=== PATIENT | female | born 1985 | race African-American/Black ===

== ENCOUNTER 2023-03-15 10:00 | Outpatient (CLI) | payer OTHER ==
--- NOTE | 2023-03-15 10:54 | Sleep Patient Instructions ---
Sleep Center Visit Summary - Patient Visit Information Reason for Visit: Initial consult for evaluation of sleep disordered breathing and other sleep issues. - Patient Instructions Instructions Attached: Sleep Study Home Monitor, Sleep Clinic Visit, Sleep Study Additional Instructions: You will be completing a sleep study, either an in-lab polysomnography (PSG) or home sleep study (HST). You will follow-up in the sleep care office after the sleep study is completed to hear the results and talk about therapy, if needed. You will be called by our office staff to schedule this appointment, but you may contact us with any questions. - Clinic Information Contact[facility] [address] [place] [address] [email or web address] T: [phone]
--- NOTE | 2023-03-15 11:00 | SLEEP CARE CONSULTATION ---
Information from patient questionnaire entered by France Salas. I have reviewed and concur with the information entered by France Salas. This document represents the service I personally performed and the decisions made by me, Joelle Darden ARNP. History of Present Illness Service Date and Time: 03/15/2023 1000 Reason for Visit: New patient, Previously diagnosed sleep apnea Chief Complaint: reports: Unrefreshed sleep, Snoring, Excessive daytime sleepiness, Observed pauses in breathing, Fatigue, Frequent awakenings at night, Other (ALL THE ABOVE AND UPDATED RX) Date of Onset: 8YRS Usual bedtime: IT DEPENDS I TRY TO GOTO BED BEFORE MIDNIGHT Time it takes to fall asleep: A WHILE Snores at night: Yes Observed to quit breathing while asleep: Yes Sleeps alone due to snoring: No Number of times waking at night: 2-3 Reasons for waking at night: reports: Bathroom, Other (ADJUSTING HOW I LAY IN BED; dry mouth/cough). denies: Choking, Gasping for air Toss, Turn, or Twitch while sleeping: Yes Recalls having dreams: Yes Usually gets out of bed at: 0715 on weekdays; 09-10 AM on weekends Feels refreshed in the morning: No Morning headache: Yes (2 times a month) Sleepy or fatigued during the day: No Ever fallen asleep while driving: No Takes day naps: Yes (1-2 times a week) Dreams during day naps: Yes Prior sleep studies: Yes Additional HPI information: I had the pleasure of seeing JOSE WHITAKER today regarding the possibility of her having a sleep disorder. Her current complaints are excessive daytime sleepiness, fatigue, frequent night awakenings, observed pauses in breathing, snoring and unrefreshed sleep. She was previously diagnoses with sleep apnea and placed on a CPAP but has had trouble with getting supplies and has been unable to use her CPAP consistently for the last 3 years. She does not have a copy of her last sleep study, she thinks it was done in [id number] in [place]. She saw her PCP who tried to update her supply prescription but was unable to get the DME to accept it and send her supplies. She did purchase a mask on line but has not used the machine yet. She would like to be able to consistently get supplies and use her CPAP. - Parasomnia Symptoms Ever been unable to move upon waking from sleep: No Walks in sleep: No Talks in sleep: Yes Ever acted out dreams in sleep: No Ever felt weak in the knees when startled or emotional: No Bothered by creepy, crawly, restless sensations in legs: Yes (mostly at night but not often) Problems with memory or concentration: Yes (both) CPAP Compliance Data - Data Reviewed with Patient Average duration of nightly device use: 4 minutes Compliance rate %: 0 ( days used) Current pressure setting (cmH2O): 7 Average residual AHI: 0 Compliance data discussion: She has a ResMed Airsense 10 that was set up in 05/2019. She has used a nasal p illows mask in the past. Subjective Missed days of use due to: reports: other (no supplies to be able to use CPAP) Current pressure setting perceived as: comfortable On therapy, patient: reports: sleeping better, awakening more refreshed, being more awake and alert during the day, more rested overall. denies: drowsiness while driving Initial Franklin Sleepiness Scale score: 18 (03/15/23) Past Medical History Past Medical History: reports: Hypertension, Claustrophobia, Anxiety, Asthma, Depression, Attention deficit, Other (ENDOMETRIAL CANCER, PRE DIABETES) Social History The patient's occupation is a [employer]. Patient is and lives in [place]. Have you smoked in the past 12 months: No Alcohol use: Yes Alcohol amount and frequency: OCCASSIONALLY 1 A WEEK OR 1 EVERY 2 WEEK Caffeine use: Yes Caffeine amount and frequency: occasional tea, unsure if caffeine in it Family History Family history of sleep disordered breathing: Yes Family Hx Sleep Apnea: Mother: Snoring, Sleep apnea - Untreated, Father: Snoring, Sleep apnea - Untreated, Sibling: Snoring, Sleep apnea - Untreated Allergies and Home Medications Known drug allergies: No Drug allergies reviewed: Yes Home medication list reviewed: Yes Allergy and home medication list: Home Medications Medication Instructions Recorded Confirmed Last Taken Type Fexofenadine [Brittany] See Rx Instructions .ROUTE .COMPLEX 03/15/23 03/15/23 Unknown History Fluticasone/Umeclidin/Vilanter See Rx Instructions .ROUTE .COMPLEX 03/15/23 03/15/23 Unknown History [Treledonovan Ellipta 100-62.5-25] Megestrol Acetate See Rx Instructions .ROUTE .COMPLEX 03/15/23 03/15/23 Unknown History Pantoprazole [Protonix] See Rx Instructions .ROUTE .COMPLEX 03/15/23 03/15/23 Unknown History Telmisartan/Hydrochlorothiazid See Rx Instructions .ROUTE .COMPLEX 03/15/23 03/15/23 Unknown History [Micardis Hct 40-12.5 mg Tablet] amLODIPine [Norvasc] See Rx Instructions .ROUTE .COMPLEX 03/15/23 03/15/23 Unknown History metFORMIN [Glucophage] See Rx Instructions .ROUTE .COMPLEX 03/15/23 03/15/23 Unknown History Review of Systems Weight gain over past 5 years: 25-30 Cardiovascular: reports: high blood pressure, palpitations, chest pain Respiratory: reports: shortness of breath Gastrointestinal: reports: heartburn Urinary: reports: frequency Neurological: denies: headaches Psychiatric: reports: Attention Deficit Hyperactivity, anxiety, depression, claustrophobia Ear/Nose/Throat: denies: tonsillectomy Endocrine: reports: sluggishness, increased urination Musculoskeletal: reports: joint pain, muscle pain or cramping Immunologic: reports: sneezing, rash, itching, allergies to food or environment Physical Exam Vital signs obtained and entered by: FRANCE Lockhart MA Blood Pressure: 138/86 (LEFT ARM) Cuff size: long Heart Rate: 105 O2 Saturation: 98 Height: 5 ft 2 in Weight: 224 lb 9.6 oz Body Mass Index: 41.1 BMI Classification: Morbidly Obese Neck circumference: 20 Mouth and throat: narrow oropharynx Soft palate: long Hard palate: normal Uvula: long Uvula visualization: 25% Mallampati Class III Tongue: enlarged in size with teeth guerrero on lateral edges Tonsils: 3+/kissing Neck: normal w/o lymphadenopathy or thyromegaly Heart: regular rate and rhythm Lungs: clear bilaterally Impression and Plan 1. Suspected Obstructive Sleep Apnea-Hypopnea Syndrome, as previously diagnosed and suggested by a history of loud and irregular snoring, observed cessation of breath while asleep, frequent awakening during the night, unrefreshed sleep, cognitive impairment, and excessive daytime sleepiness. Narrow oropharynx and obesity are common predisposing factors for obstructive sleep apnea-hypopnea syndrome. I recommend proceeding to polysomnography to confirm the diagnosis and to assess severity. If the patient has significant sleep disordered breathing, a manual CPAP titration study will also be performed to find the optimal treatment pressure. I informed the patient of what the sleep studies involve and after some discussion, obtained agreement to proceed. The pathophysiology of obstructive sleep apnea-hypopnea syndrome was discussed with the patient and health risks of cardiovascular and cerebrovascular disease if not treated. Risks of drowsy driving discussed in detail and patient advised to avoid long distance driving and to tobacco sample puller at the first sign of drowsiness. Patient agreed to plan. * Schedule polysomnography. * Avoid long distance driving or driving when feeling sleepy. * Avoid alcohol, sedative and muscle relaxant around bedtime. * Attempt to lose weight. * Review instructions provided by trained office staff on how to prepare for the sleep study. * Return for follow-up after sleep study completed. Counseling Topics: Weight loss health impact Plan: PSG evaluation Visit Type: In Office Time Spent with Patient (minutes): 34 Provider Statement: I spent 100% of the Face to Face Visit with the patient with greater than 50% spent counseling the patient and coordination of care.
[2023-03-15 11:02] VITALS: BP 138/86; O2SAT 98
== END 2023-03-15 10:01 | disposition home or self-care (01) ==
LOC: SC 10:00
PROVIDERS: ATTEND Nurse Practitioner Family
DX: R06.83 Snoring (principal); G47.8 Other sleep disorders; R06.81 Apnea, not elsewhere classified; G47.10 Hypersomnia, unspecified; R53.83 Other fatigue; I10 Essential (primary) hypertension; F32.A Depression, unspecified; E66.01 Morbid (severe) obesity due to excess calories; Z68.41 Body mass index [BMI] 40.0-44.9, adult
CPT/HCPCS: 99203; 99212

== ENCOUNTER 2023-04-06 19:31 | Outpatient (CLI) | payer OTHER | END 2023-04-06 19:32 | disposition home or self-care (01) | LOC: SC 19:31 | PROVIDERS: ATTEND Nurse Practitioner Family | DX: G47.33 Obstructive sleep apnea (adult) (pediatric) (principal); I48.91 Unspecified atrial fibrillation; E66.01 Morbid (severe) obesity due to excess calories; Z68.41 Body mass index [BMI] 40.0-44.9, adult | CPT/HCPCS: 95810 ==

== ENCOUNTER 2023-04-12 15:50 | Outpatient (CLI) | payer OTHER ==
--- NOTE | 2023-04-12 15:27 | SLEEP CARE CONSULTATION ---
Information from patient questionnaire entered by France Salas. I have reviewed and concur with the information entered by France Salas. This document represents the service I personally performed and the decisions made by , Joelle Darden ARNP. History of Present Illness Service Date and Time: 04/12/2023 1520 Initial Lenora Sleepiness Scale score: 18 (03/15/23) Current Lenora Sleepiness Scale score: 16 (04/12/23) Additional HPI information: JOSE WHITAKER returns via video telehealth visit for follow up and results of the recently performed polysomnography. Her sleep study showed very severe obstructive sleep apnea with an average AHI of 81.9 and mars oxygen saturation of 59%. Her cardiac monitoring showed atrial fibrillation. I explained the pathophysiology behind obstructive sleep apnea. We then spent quite a bit of time discussing different treatment options. For mild obstructive sleep apnea, surgery and oral appliance are alternatives to nasal CPAP therapy but in moderate or severe cases, nasal CPAP is the most effective and reliable treatment. I reviewed the impact of weight changes on sleep apnea and strongly recommended losing weight. The patient will resume nasal CPAP set at 7 cmH20 at her previous setting. A manual titration study will be ordered if unable to find optimal pressure with office adjustments. Patient counseled not drink alcohol less than 4 hours before bedtime as it can increase snoring and apnea. Patient was cautioned about risks of drowsy driving until sleepiness symptoms resolve. Patient denies drowsy driving. Sleep Study - Results Type of Sleep Study: Polysomnography (COMPLETED 04/06/23) Prior sleep studies: Yes Polysomnography/Home Sleep Study results: IMPRESSION: The quality of the study is good. The patient had slightly reduced sleep efficiency due to two prolonged awakenings during the night. The sleep architecture was abnormal for sleep fragmentation and lack of slow wave sleep (N3). Respiratory monitoring showed very severe obstructive sleep apnea-hypopnea (AHI = 81.9) associated with frequent arousals, oxyhemoglobin desaturation and severe hypoxia (mars oxygen saturation of 59%). Baseline oxygen saturation was normal. The respiratory events occurred independently of sleep stage and body position (supine AHI = 88.1; non-supine = 70.05). Snore was very loud in i ntensity. There was no significant periodic leg movement of sleep. Cardiac rhythm was atrial fibrillation. No abnormal behavior (parasomnia) observed during the night. Allergies and Home Medications Known drug allergies: No Drug allergies reviewed: Yes Home medication list reviewed: Yes (Buproprion; Atorvastatin) Allergy and home medication list: Allergies No Known Drug Allergies Allergy (Verified 04/11/23 09:52) Review of Systems Review of systems same as previous: Yes (NO CHANGE) Physical Exam Vital signs obtained and entered by: FRANCE Lockhart MA Blood Pressure: 117/62 (PER PT) Height: 5 ft 2 in (PER PT) Weight: 218 lb (PER PT) Body Mass Index: 39.9 BMI Classification: Obese Impression and Plan 1. Obstructive Sleep Apnea-Hypopnea Syndrome, very severe, with lowest oxygen saturation of 59%. Obviously this is the cause of the patients symptoms of unrefreshed sleep, and excessive daytime sleepiness. Positive pressure therapy could benefit hypertension, anxiety, depression, attention deficit and pre- diabetes.. As mentioned above, the patient will resume on nasal autoCPAP therapy with pressure set at 7 cmH2O. A manual titration study will be completed if unable to find optimal treatment pressure with office adjustments. Compliance guidelines also reviewed. A copy of compliance guidelines will be given for reference at check out. 2. Atrial fibrillation. Cardiac monitoring during sleep study showed atrial fibrillation for her heart rhythm. I advised her to follow-up with her primary care or junior bookkeeper for further evaluation and treatment as needed. 3. Hypoxemia, severe, with a mars oxygen saturation of 59% and 82.2 minutes spent under 90%. Her baseline oxygen saturation was normal with an average oxygen saturation of 92%. 4. Obesity, unspecified. Currently patients BMI is 39.9. Obesity increases the risk of apnea, CPAP pressure requirements and overall health risks especially cardiovascular and diabetes. Thus patient is advised to lose weight. * Restart CPAP therapy, pressure at 7 cmH2O. * Attempt to lose weight. * Avoid alcohol consumption near bedtime. * The patient is again cautioned about driving until sleepiness completely resolves. * Return one month after restarting CPAP therapy. I will assess response to therapy and compliance at that time. Counseling Topics: Weight loss health impact Prescriptions: Device supplies Follow up with Sleep Care in: 1-2 months Visit Type: Telehealth Video Video Type: Doximity Patient Location: Home Location of Provider: Office Patient agrees and consents to this telehealth visit type: Yes Patient agrees to have their insurance billed: Yes Time Spent with Patient (minutes): 22 Provider Statement: I spent 100% of the Telehealth Video Call with the patient with greater than 50% spent counseling the patient and coordination of care.
[2023-04-12 15:33] VITALS: BP 117/62
== END 2023-04-12 15:51 | disposition home or self-care (01) ==
LOC: SC 15:50
PROVIDERS: ATTEND Nurse Practitioner Family
DX: G47.33 Obstructive sleep apnea (adult) (pediatric) (principal); E66.9 Obesity, unspecified; I48.91 Unspecified atrial fibrillation; Z68.39 Body mass index [BMI] 39.0-39.9, adult

== ENCOUNTER 2023-05-15 10:00 | Outpatient (CLI) | payer OTHER ==
--- NOTE | 2023-05-15 10:46 | Sleep Patient Instructions ---
Sleep Center Visit Summary - Patient Visit Information Reason for Visit: 1 month follow-up - Patient Instructions Additional Instructions: You were here for follow up of CPAP therapy. You will be continued on CPAP therapy with pressure at 8-12 cmH2O. Please let us know if the pressure change is uncomfortable and we can make further adjustments of the pressure. You should follow up with sleep care in 1-2 months. You may contact us sooner for any questions or concerns. - Clinic Information Contact: [facility] [address] [place] [id number] [email or web address] T: [phone]
--- NOTE | 2023-05-15 10:50 | SLEEP CARE CONSULTATION ---
Information from patient questionnaire entered by France Salas. I have reviewed and concur with the information entered by France Salas. This document represents the service I personally performed and the decisions made by , Joelle Darden ARNP. History of Present Illness Service Date and Time: 05/15/2023 1000 Previous diagnosis: Very Severe, Obstructive Sleep Apnea-Hypopnea Syndrome AHI: 81.9 (04/2023) Reason for follow up: one month (F/U) Equipment type: CPAP (Resmed Airsense 10; SD CARD NEEDED) Equipment obtained from: Other ([facility]) Mask style: Nasal pillows Mask brand: Resmed Backup mask available: Yes Last cushion change: couple days ago Prior sleep studies: Yes Type of Sleep Study: Polysomnography (COMPLETED 04/06/23) HPI additional information: JOSE WHITAKER was diagnosed to have very severe, AHI 81.9, obstructive sleep apnea-hypopnea syndrome and returned today for CPAP therapy one month follow-up. Sleep Study - Results Type of Sleep Study: Polysomnography (COMPLETED 04/06/23) Prior sleep studies: Yes CPAP Compliance Data - Data Reviewed with Patient Average duration of nightly device use: 6 hours 30 minutes Compliance rate %: 83 ( days used) Current pressure setting (cmH2O): 7 Average residual AHI: 10.5 Central apnea: 0.1 Obstructive apnea: 8 Hypopnea: 2.4 Average large leak: 8.6 L/min Subjective Missed days of use due to: reports: travel Patient concerns: reports: air blowing in eyes (sometimes), mask leak noise (happened once), dry mouth, nose, throat. denies: aerophagia, mask discomfort, condensation in mask/hose, nasal congestion, epistaxis Observed to snore while using device: No Current pressure setting perceived as: comfortable On therapy, patient: reports: sleeping better, awakening more refreshed, being more awake and alert during the day, more rested overall. denies: drowsiness while driving Initial [place] Sleepiness Scale score: 18 (03/15/23) Current [place] Sleepiness Scale score: 18 Allergies and Home Medications Known drug allergies: No Drug allergies reviewed: Yes Home medication list reviewed: Yes (Lipitor) Allergy and home medication list: Allergies No Known Drug Allergies Allergy (Verified 11/13/23 09:11) Review of Systems Review of systems same as previous: No (Pre-diabetes, high cholesterol) Physical Exam Vital signs obtained and entered by: JOELLE DILLARD Blood Pressure: 154/91 Cuff size: wrist (left) Heart Rate: 83 O2 Saturation: 98 Height: 5 ft 2 in (PER PT) Weight: 214 lb 3.2 oz Body Mass Index: 39.2 BMI Classification: Obese Impression and Plan 1. Obstructive Sleep Apnea-Hypopnea Syndrome, very severe, with good treatment compliance and fair apnea control with elevated residual AHI. On CPAP therapy, the patient has better sleep quality and is more rested overall. She is waiting to see PCM for cardiology referral for elevated heart rate during her sleep study. She is doing well with the CPAP but does have a dry mouth in morning. Oral dryness can be reduced by adjusting humidity setting higher or heated hose lower or by adjusting both settings. Verbal instructions given on how to change humidity and heated hose settings with rationale explaining why to change. Patient advised that chronic oral dryness can affect dental health and advised to follow up with dentist. The patients pressure will be changed to autoCPAP 8- 12 cmH20 for elevation of residual AHI. Patient advised to contact me if pressure change is uncomfortable so that it can be adjusted. Goals for apnea control discussed. Patient's apnea severity and rationale for treatment to reduce apnea, improve sleep quality and reduce cardiovascular and cerebrovas cular events was reviewed. I also reviewed the benefit of consistent device use of CPAP for hypertension, pre-diabetes, depression/anxiety, attention deficit. 2. Obesity, unspecified. Currently patients BMI is 39.2. Obesity increases the risk of apnea, CPAP pressure requirements and overall health risks especially cardiovascular and diabetes. Thus patient is advised to lose weight. * Change auto CPAP pressure to 8-12 cmH2O * Notify me if snoring with mask or feeling that the pressure is too much or too little * Attempt to lose weight * Call this office if any problems using CPAP * Return for follow up in 1-2 months, or sooner if concerns arise Counseling Topics: Spare mask, Weight loss health impact Follow up with Sleep Care in: 1-2 months Visit Type: In Office Time Spent with Patient (minutes): 20 Provider Statement: I spent 100% of the Face to Face Visit with the patient with greater than 50% spent counseling the patient and coordination of care.
[2023-05-15 10:58] VITALS: BP 154/91; O2SAT 98
== END 2023-05-15 10:01 | disposition home or self-care (01) ==
LOC: SC 10:00
PROVIDERS: ATTEND Nurse Practitioner Family
DX: G47.33 Obstructive sleep apnea (adult) (pediatric) (principal); E66.9 Obesity, unspecified; Z68.39 Body mass index [BMI] 39.0-39.9, adult
CPT/HCPCS: 99212; 99213

== ENCOUNTER 2023-06-20 09:17 | Outpatient (CLI) | payer OTHER ==
--- NOTE | 2023-06-20 09:40 | Sleep Patient Instructions ---
Sleep Center Visit Summary - Patient Visit Information Reason for Visit: 5-month follow-up - Patient Instructions Additional Instructions: You were here for follow up of CPAP therapy. You will be continued on CPAP therapy with pressure at 8-12 cmH2O. You should follow up with sleep care in 6 months. You may contact us sooner for any questions or concerns. - Clinic Information Contact: [facility] [address] [place] [address] [email or web address] T: [phone]
--- NOTE | 2023-06-20 09:43 | SLEEP CARE CONSULTATION ---
Information from patient questionnaire entered by France Salas. I have reviewed and concur with the information entered by France Salas. This document represents the service I personally performed and the decisions made by me, Joelle Darden ARNP. History of Present Illness Service Date and Time: 06/20/2023916 Previous diagnosis: Very Severe, Obstructive Sleep Apnea-Hypopnea Syndrome AHI: 81.9 (04/2023) Reason for follow up: other (5 MONTH F/U) Accompanied by: daughter Equipment type: CPAP (RESMED Airsense 10, s/u 05/2019) Equipment obtained from: Other ([facility]; getting supplies) Mask style: Nasal pillows Backup mask available: Yes Last cushion change: last weekend Prior sleep studies: Yes Type of Sleep Study: Polysomnography (COMPLETED 04/06/23) HPI additional information: JOSE WHITAKER was diagnosed to have very severe, AHI 81.9, obstructive sleep apnea-hypopnea syndrome and returned today for CPAP therapy five month follow- up. Sleep Study - Results Type of Sleep Study: Polysomnography (COMPLETED 04/06/23) Prior sleep studies: Yes CPAP Compliance Data - Data Reviewed with Patient Average duration of nightly device use: 5 HRS 40 MINS Compliance rate %: 91 (05/15/23-06/17/23; 32/34 days used) Current pressure setting (cmH2O): 8-12 Average residual AHI: 0.5 Central apnea: 0.1 Obstructive apnea: 0.1 Average large leak: 3.8 L/min Subjective Patient concerns: reports: mask discomfort (bruise in nose with ex small cushion ). denies: aerophagia, air blowing in eyes, mask leak noise, condensation in mask/hose, nasal congestion, dry mouth, nose, throat, epistaxis Observed to snore while using device: No Current pressure setting perceived as: comfortable On therapy, patient: reports: sleeping better, awakening more refreshed, being more awake and alert during the day, more rested overall. denies: drowsiness while driving Initial [place] Sleepiness Scale score: 18 (03/15/23) Current [place] Sleepiness Scale score: 13 (06/20/23) Allergies and Home Medications Known drug allergies: No Drug allergies reviewed: Yes Home medication list reviewed: Yes (no changes) Allergy and home medication list: Allergies No Known Drug Allergies Allergy (Verified 06/19/23 08:49) Home Medications Medication Instructions Recorded Confirmed Last Taken Type Fexofenadine [Brittany] See Rx Instructions .ROUTE .COMPLEX 03/15/23 06/20/23 Unknown History Fluticasone/Umeclidin/Vilanter See Rx Instructions .ROUTE .COMPLEX 03/15/23 06/20/23 Unknown History [Trelegy Ellipta 100-62.5-25] Megestrol Acetate See Rx Instructions .ROUTE .COMPLEX 03/15/23 06/20/23 Unknown History Pantoprazole [Protonix] See Rx Instructions .ROUTE .COMPLEX 03/15/23 06/20/23 Unknown History Telmisartan/Hydrochlorothiazid See Rx Instructions .ROUTE .COMPLEX 03/15/23 1 08/21/22 Unknown History [Micardis Hct 40-12.5 mg Tablet] amLODIPine [Norvasc] See Rx Instructions .ROUTE .COMPLEX 03/15/23 06/20/23 Unknown History metFORMIN [Glucophage] See Rx Instructions .ROUTE .COMPLEX 03/15/23 06/20/23 Unknown History Atorvastatin Calcium [Atorvaliq] See Rx Instructions .ROUTE .COMPLEX 04/12/23 06/20/23 Unknown History buPROPion [Wellbutrin Sr] See Rx Instructions .ROUTE .COMPLEX 04/12/23 06/20/23 Unknown History Review of Systems Review of systems same as previous: Yes (NO CHANGE) Physical Exam Vital signs obtained and entered by: FRANCE Lockhart MA Blood Pressure: 122/73 (LEFT ARM) Cuff size: regular Heart Rate: 87 O2 Saturation: 98 Height: 5 ft 2 in (PER PT) Weight: 221 lb Body Mass Index: 40.4 BMI Classification: Morbidly Obese Impression and Plan 1. Obstructive Sleep Apnea-Hypopnea Syndrome, very severe, with good treatment compliance and good apnea control. On CPAP therapy, the patient has better sleep quality and is more rested overall. Patient states she is using a nasal pillows mask and the extra small cushion used to be the when she was used. She tried the small cushion and that was more comfortable. I advised her to call her DME to change the size of the cushion from the extra small to the small. She voiced understanding. Patient's apnea severity and rationale for treatment to reduce apnea, improve sleep quality and reduce cardiovascular and cerebrovascular events was reviewed. I also reviewed the benefit of consistent device use of CPAP for hypertension, pre-diabetes, depression, anxiety and attention deficit. 2. Obesity, unspecified. Currently patients BMI is 40.4. Obesity increases the risk of apnea, CPAP pressure requirements and overall health risks especially cardiovascular and diabetes. Thus patient is advised to lose weight. * Continue auto CPAP pressure at 8-12 cmH2O * Notify me if snoring with mask or feeling that the pressure is too much or too little * Attempt to lose weight * Call this office if any problems using CPAP * Return for follow up in 6 months, or sooner if concerns arise Counseling Topics: Spare mask, Weight loss health impact Follow up with Sleep Care in: 6 months Visit Type: In Office Time Spent with Patient (minutes): 20 Provider Statement: I spent 100% of the Face to Face Visit with the patient with greater than 50% spent counseling the patient and coordination of care.
[2023-06-20 09:50] VITALS: BP 122/73; O2SAT 98
== END 2023-06-20 09:18 | disposition home or self-care (01) ==
LOC: SC 09:17
PROVIDERS: ATTEND Nurse Practitioner Family
DX: G47.33 Obstructive sleep apnea (adult) (pediatric) (principal); E66.01 Morbid (severe) obesity due to excess calories; Z68.41 Body mass index [BMI] 40.0-44.9, adult
CPT/HCPCS: 99212; 99213